=== PATIENT | female | born 1960 | race Caucasian/White ===

== ENCOUNTER 2017-02-01 19:21 | Emergency (ER) | payer MEDICAID ==
[~2017-02-01] VITALS: Ht 167.6 cm; Wt 59.0 kg
[~2017-02-01 19:21] MED LIST: ABILIFY PO; ALBUTEROL INH; BENA20TA3; DEPAKOTE; DIPH25CA83 PO; FLUT16SP15 NS; GABA300C PO; IOHEXOL-300 100 ML BOTTLE ONE; LEVO500T15 PO; LORA10TA2; METO10TA3; OMEP20CA4 PO; OMEP20TA80 PO; ONDA4TAB5 PO; RISP2 PO; SODIUM CHLORIDE 0.9% 10ML VIAL ONE; SUCR1TAB PO; SUCR1TAB30 PO; TRAM50TA PO; VICODIN
[2017-02-01] MEDS ORDERED: SODIUM CHLORIDE 0.9% 1,000 ML IV ONE (20:28)
[2017-02-01 21:13] LABS: BASOPHILS % 0.6 % (0.0-2.0); EOSINOPHILS % 1.8 % (0.0-5.0); HEMATOCRIT. 33.3 % (36.0-48.0); HEMOGLOBIN. 11.2 g/dL (12.0-16.0); LYMPHOCYTES % 28.5 % (20.0-50.0); MEAN CORPUSCULAR VOLUME 88.9 fL (81.0-99.0); MEAN PLATELET VOLUME 8.1 fl (7.4-10.4); MONOCYTES % 4.2 % (2.0-8.0); NEUTROPHILS % 64.9 % (40.0-76.0); PLATELET 159 x1000/uL (130-400); RED BLOOD CELL COUNT 3.75 mill/uL (4.2-5.4); RED CELL DISTRIBUTION WIDTH 12.7 % (11.6-14.6)
[2017-02-01 21:19] LABS: CHLORIDE 110 mEq/L (98-107)
[2017-02-01 21:23] LABS: INR 1.1
[2017-02-01 21:28] LABS: CARBON DIOXIDE 33 mEq/L (21-32)
[2017-02-01 22:03] LABS: HCG SCREEN NEGATIVE
[2017-02-02 00:19] LABS: CLARITY URINE TURBID (CLEAR); COLOR URINE YELLOW (YELLOW); GLUCOSE URINE NEGATIVE (NEGATIVE); KETONES URINE NEGATIVE (NEGATIVE); LEUKOCYTE ESTERASE URINE 3+ (NEGATIVE); NITRITE URINE NEGATIVE (NEGATIVE); OCCULT BLOOD URINE 3+ (NEGATIVE); PROTEIN URINE TRACE (NEGATIVE); SPECIFIC GRAVITY URINE 1.024 (1.005-1.030)
[2017-02-02 04:15] VITALS: BP 117/60
== END 2017-02-02 04:18 | disposition home or self-care (01) ==
LOC: ER 19:22
DX: N39.0 Urinary tract infection, site not specified (principal); R59.0 Localized enlarged lymph nodes; E11.9 Type 2 diabetes mellitus without complications; I10 Essential (primary) hypertension; I25.2 Old myocardial infarction; J45.909 Unspecified asthma, uncomplicated; Z86.73 Personal history of transient ischemic attack (TIA), and cerebral infarction without residual deficits; Z87.891 Personal history of nicotine dependence; Z88.5 Allergy status to narcotic agent; Z88.0 Allergy status to penicillin; Z88.2 Allergy status to sulfonamides; Z95.5 Presence of coronary angioplasty implant and graft
CPT/HCPCS: 36415; 74177; 80053; 81001; 83690; 84703; 85025; 85610; 96360; 96361; 99285; A4216; Q9967; Z7610; J7030

== ENCOUNTER 2017-03-09 14:55 | Emergency (ER) | payer MEDICAID ==
[~2017-03-09] VITALS: Ht 167.6 cm; Wt 66.0 kg
[~2017-03-09 14:55] MED LIST changes: -IOHEXOL-300 100 ML BOTTLE ONE; -SODIUM CHLORIDE 0.9% 10ML VIAL ONE
[2017-03-09] MEDS ORDERED: KETOROLAC 30MG/ML VIAL IV STA (15:26)
[2017-03-09] MEDS ORDERED: SODIUM CHLORIDE 0.9% 1,000 ML IV ONE (15:26)
[2017-03-09] MEDS ORDERED: METOCLOPRAMIDE HCL 10MG/2ML VIAL IV ONE (15:30)
[2017-03-09 15:57] LABS: BASOPHILS % 0.8 % (0.0-2.0); EOSINOPHILS % 2.1 % (0.0-5.0); HEMOGLOBIN. 10.9 g/dL (12.0-16.0); LYMPHOCYTES % 30.6 % (20.0-50.0); MEAN CORPUSCULAR VOLUME 88.1 fL (81.0-99.0); MEAN PLATELET VOLUME 7.9 fl (7.4-10.4); MONOCYTES % 6.2 % (2.0-8.0); NEUTROPHILS % 60.3 % (40.0-76.0); PLATELET 176 x1000/uL (130-400); RED BLOOD CELL COUNT 3.63 mill/uL (4.2-5.4); RED CELL DISTRIBUTION WIDTH 12.7 % (11.6-14.6)
[2017-03-09 16:01] LABS: CHLORIDE 110 mEq/L (98-107)
[2017-03-09 16:02] LABS: PROTHROMBIN TIME 10.6 sec
[2017-03-09 16:11] LABS: CARBON DIOXIDE 27 mEq/L (21-32)
[2017-03-09 16:24] LABS: CLARITY URINE TURBID (CLEAR); COLOR URINE YELLOW (YELLOW); GLUCOSE URINE NEGATIVE (NEGATIVE); KETONES URINE NEGATIVE (NEGATIVE); LEUKOCYTE ESTERASE URINE 1+ (NEGATIVE); NITRITE URINE POSITIVE (NEGATIVE); OCCULT BLOOD URINE TRACE (NEGATIVE); PH URINE 8.5 (4.5-8.0); PROTEIN URINE NEGATIVE (NEGATIVE)
[2017-03-09] MEDS ORDERED: LEVOFLOXACIN 750MG PREMIX 150 ML IV ONE (16:45)
[2017-03-09 18:33] VITALS: BP 130/68
== END 2017-03-09 18:35 | disposition home or self-care (01) ==
LOC: ER 15:25
DX: H81.10 Benign paroxysmal vertigo, unspecified ear (principal); N39.0 Urinary tract infection, site not specified; J45.909 Unspecified asthma, uncomplicated; E11.9 Type 2 diabetes mellitus without complications; I10 Essential (primary) hypertension; I25.2 Old myocardial infarction; E78.5 Hyperlipidemia, unspecified; Z86.73 Personal history of transient ischemic attack (TIA), and cerebral infarction without residual deficits; Z87.891 Personal history of nicotine dependence; Z88.0 Allergy status to penicillin; Z88.2 Allergy status to sulfonamides; Z88.6 Allergy status to analgesic agent; Z88.8 Allergy status to other drugs, medicaments and biological substances
CPT/HCPCS: 36415; 80053; 81001; 83690; 85025; 85610; 96361; 96365; 96375; 99284; J1885; J1956; J2765; Z7610; J7030

== ENCOUNTER 2018-09-08 14:48 | Inpatient (IN) | payer MEDICAID ==
[~2018-09-08] VITALS: Ht 162.6 cm; Wt 64.9 kg
[~2018-09-08 14:48] MED LIST changes: -ABILIFY PO; -ALBUTEROL INH; +ASPI-1158 PO; -BENA20TA3; +CLOP75TA16 PO; -DEPAKOTE; -DIPH25CA83 PO; -FLUT16SP15 NS; -GABA300C PO; -LEVO500T15 PO; -LORA10TA2; +METF-414 PO; -METO10TA3; +METO25TA6 PO; -OMEP20CA4 PO; -OMEP20TA80 PO; -ONDA4TAB5 PO; -RISP2 PO; -SUCR1TAB PO; -SUCR1TAB30 PO; -TRAM50TA PO; -VICODIN
[2018-09-08 15:50] LABS: CHLORIDE 110 mEq/L (98-107)
[2018-09-08 15:51] LABS: BASOPHILS % 0.9 % (0.0-2.0); EOSINOPHILS % 3.1 % (0.0-5.0); HEMOGLOBIN. 11.4 g/dL (12.0-16.0); LYMPHOCYTES % 37.9 % (20.0-50.0); MEAN CORPUSCULAR HEMOGLOBIN 30.4 pg (28.0-32.0); MEAN CORPUSCULAR VOLUME 90.5 fL (81.0-99.0); MEAN PLATELET VOLUME 8.3 fl (7.4-10.4); NEUTROPHILS % 52.1 % (40.0-76.0); PLATELET 182 x1000/uL (130-400); RED BLOOD CELL COUNT 3.76 mill/uL (4.2-5.4); RED CELL DISTRIBUTION WIDTH 13.4 % (11.6-14.6)
[2018-09-08 15:54] LABS: ETHANOL BLOOD < 10 mg/dL
[2018-09-08] MEDS ORDERED: KETOROLAC 60MG/2ML VIAL IM ONE (16:45)
[2018-09-08] MEDS ORDERED: IBUPROFEN 600MG TABLET PO ONE (18:15)
[2018-09-08] MEDS ORDERED: ACETAMINOPHEN 325MG TABLET PO ONE (18:45)
[2018-09-08 19:22] LABS: CLARITY URINE TURBID (CLEAR); COLOR URINE YELLOW (YELLOW); KETONES URINE NEGATIVE (NEGATIVE); LEUKOCYTE ESTERASE URINE 2+ (NEGATIVE); NITRITE URINE NEGATIVE (NEGATIVE); OCCULT BLOOD URINE TRACE (NEGATIVE); PH URINE 7.5 (4.5-8.0); PROTEIN URINE NEGATIVE (NEGATIVE); SPECIFIC GRAVITY URINE 1.028 (1.005-1.030)
[2018-09-08 19:35] LABS: *AMPHETAMINES SCREEN URINE NEGATIVE (NEGATIVE); *BARBITURATES SCREEN URINE NEGATIVE (NEGATIVE); *BENZODIAZEPINES SCREEN URINE NEGATIVE (NEGATIVE); *COCAINE SCREEN URINE NEGATIVE (NEGATIVE); METHADONE URINE SCREEN NEGATIVE (NEGATIVE); OPIATES URINE SCREEN NEGATIVE (NEGATIVE)
[2018-09-08 19:36] LABS: CANNABINOID URINE SCREEN PRESUMTIVE POSITIVE (NEGATIVE); PHENCYCLIDINE URINE SCREEN NEGATIVE (NEGATIVE)
[2018-09-08] MEDS ORDERED: HYDROCODONE/ACETAMINOPHEN 5/325MG TABLET PO ONE (20:45)
[2018-09-08] MEDS ORDERED: NITROFURANTOIN 100MG M/M CAPSULE PO ONE (21:15)
[2018-09-09] MEDS ORDERED: NITROFURANTOIN 100MG M/M CAPSULE PO NR (02:00)
[2018-09-09 08:00] VITALS: BP_SYST 112; BP_SYST 142; BP_DIAS 66; BP_DIAS 71
[2018-09-09 08:16] VITALS: BP 112/66
[2018-09-09] MEDS: HYDROCODONE/ACETAMINOPHEN 5/325MG TABLET PO PRN ×2 (09:01→18:30)
[2018-09-09] MEDS ORDERED: POLY15DR55 EACHEYE (10:50)
[2018-09-09] MEDS ORDERED: AMLO10TA80 PO (10:50)
[2018-09-09] MEDS ORDERED: GABA-531 PO (10:50)
[2018-09-09] MEDS ORDERED: ATOR40TA70 PO (10:50)
[2018-09-09] MEDS ORDERED: BECL10.62 IH (10:50)
[2018-09-09] MEDS ORDERED: KETO5DRO7 EACHEYE (10:50)
[2018-09-09] MEDS ORDERED: POLYVINYL ALCOHOL OPHTH DROPS 15ML EACHEYE PRN (11:15)
[2018-09-09] MEDS ORDERED: BECLOMETHASONE DIPROPIONATE 10.6 GM IH SCH (11:15)
[2018-09-09] MEDS: LEVOFLOXACIN 500MG PREMIX 100 ML IV SCH (11:45)
[2018-09-09] MEDS ORDERED: BUDESONIDE 0.5MG/2ML NEB HHN SCH (12:00)
[2018-09-09 12:03] VITALS: BP 100/64
[2018-09-09 15:58] VITALS: BP 93/70
[2018-09-09] MEDS ORDERED: MECLIZINE 25MG TABLET PO PRN (18:15)
[2018-09-09] MEDS: METOPROLOL TARTRATE 25MG TABLET PO SCH (21:00)
[2018-09-09] MEDS ORDERED: GABAPENTIN 300MG CAPSULE PO SCH (21:00)
[2018-09-09] MEDS ORDERED: ATORVASTATIN CALCIUM 40MG TABLET PO SCH (21:00)
[2018-09-10] VITALS (9 sets, daily range): BP systolic 96–118; BP diastolic 57–78
[2018-09-10] MEDS: HYDROCODONE/ACETAMINOPHEN 5/325MG TABLET PO PRN ×2 (05:09→15:42)
[2018-09-10 07:51] LABS: EOSINOPHILS % 4.7 % (0.0-5.0); HEMATOCRIT. 33.8 % (36.0-48.0); HEMOGLOBIN. 11.6 g/dL (12.0-16.0); LYMPHOCYTES % 49.3 % (20.0-50.0); MEAN CORPUSCULAR HEMOGLOBIN 30.8 pg (28.0-32.0); MEAN CORPUSCULAR VOLUME 89.5 fL (81.0-99.0); MEAN PLATELET VOLUME 8.6 fl (7.4-10.4); MONOCYTES % 6.7 % (2.0-8.0); NEUTROPHILS % 38.3 % (40.0-76.0); PLATELET 177 x1000/uL (130-400); RED BLOOD CELL COUNT 3.78 mill/uL (4.2-5.4)
[2018-09-10] MEDS ORDERED: ASPIRIN 81MG EC TABLET PO SCH (09:00)
[2018-09-10] MEDS: METOPROLOL TARTRATE 25MG TABLET PO SCH (09:00)
[2018-09-10] MEDS ORDERED: AMLODIPINE 10MG TABLET PO SCH (09:00)
[2018-09-10] MEDS ORDERED: MEDICATION NOT ON FORMULARY EA (Ketotifen Fumarate 1 DROP) EACHEYE SCH (09:00)
[2018-09-10] MEDS ORDERED: CLOPIDOGREL 75MG TABLET PO SCH (09:00)
[2018-09-10 09:05] LABS: CHLORIDE 108 mEq/L (98-107)
[2018-09-10] MEDS: LEVOFLOXACIN 500MG PREMIX 100 ML IV SCH (11:30)
[2018-09-11] MEDS ORDERED: AMLODIPINE 5MG TABLET PO SCH (09:00)
== END 2018-09-10 18:25 | disposition home or self-care (01) | DRG 48 ==
LOC: ER 15:01 → 6WST 22:01 → ENRESERV 09-09 04:31
PROVIDERS: ADMIT Internal Medicine; ATTEND Internal Medicine
DX: G90.8 Other disorders of autonomic nervous system (principal); E87.8 Other disorders of electrolyte and fluid balance, not elsewhere classified; E11.9 Type 2 diabetes mellitus without complications; F12.90 Cannabis use, unspecified, uncomplicated; D64.9 Anemia, unspecified; I10 Essential (primary) hypertension; R07.89 Other chest pain; I25.10 Atherosclerotic heart disease of native coronary artery without angina pectoris; Z95.5 Presence of coronary angioplasty implant and graft; N39.0 Urinary tract infection, site not specified; I25.2 Old myocardial infarction; Z88.2 Allergy status to sulfonamides; Z88.0 Allergy status to penicillin; Z88.9 Allergy status to unspecified drugs, medicaments and biological substances; Z82.49 Family history of ischemic heart disease and other diseases of the circulatory system; Z80.8 Family history of malignant neoplasm of other organs or systems; Z87.891 Personal history of nicotine dependence
CPT/HCPCS: 36415; 70551; 71045; 73030; 73070; 73130; 73560; 80048; 80305; 82962; 84484; 93005; 93306; 93970; 94640; 97116; 97162; 99285; C1893; G0482; J1885; J1956; J7050; J7626